=== PATIENT | male | born 1940 | race Caucasian/White ===

== ENCOUNTER 2019-02-21 07:25 | Emergency (ER) | payer MEDICARE ==
[~2019-02-21] VITALS: Ht 182.9 cm; Wt 133.9 kg
--- NOTE | 2019-02-21 08:14 | NUR ---
PT AMBULATORY TO BATHROOM UNASSISTED WITH STEADY GAIT, PT PRODUCED APPROX 150 ML GREEN SOFT STOOL, SAMPLE COLLECTED FOR PROVIDER TO PERFORM HEMOCULT AND WILL SEND SAMPLE TO LAB, PT UNABLE TO PROVIDE URINE SAMPLE AT THIS TIME AFTER ATTEMPTING TWICE.
[2019-02-21 08:18] LABS: BASOPHILS % (AUTO) 0.6 % (0-1); EOSINOPHILS # (AUTO) 0.3 X10'3 (0-0.9); EOSINOPHILS % (AUTO) 7.2 % (0-6); HEMATOCRIT 39.7 % (42.0-52.0); HEMOGLOBIN 13.5 g/dl (14.0-17.9); LYMPHOCYTES # (AUTO) 0.9 X10'3 (1.1-4.8); LYMPHOCYTES % (AUTO) 18.4 % (21-51); MEAN CORPUSCULAR HEMOGLOBIN 34.4 PG (27.0-31.0); MEAN CORPUSCULAR HGB CONC 33.9 g/dL (33.0-36.5); MEAN CORPUSCULAR VOLUME 101.3 FL (78-98); MEAN PLATELET VOLUME 7.7 FL (7.4-10.4); MONOCYTES # (AUTO) 0.5 X10'3 (0-0.9); NEUTROPHILS # (AUTO) 3.1 X10'3 (1.8-7.7); NEUTROPHILS % (AUTO) 63.8 % (42-75); PLATELET COUNT 191 X10'3 (140-440); RED BLOOD COUNT 3.92 X10'6 (4.70-6.10); RED CELL DISTRIBUTION WIDTH 13.4 % (11.5-14.5); WHITE BLOOD COUNT 4.8 X10'3 (4.5-11.0)
[2019-02-21 08:24] LABS: ALANINE AMINOTRANSFERASE 40 U/L (12-78); ALBUMIN 2.9 G/DL (3.4-5.0); ALBUMIN/GLOBULIN RATIO 0.9 (1.1-1.5); ALKALINE PHOSPHATASE 58 IU/L (46-116); ANION GAP 7 (8-16); ASPARTATE AMINO TRANSFERASE 40 U/L (10-37); BILIRUBIN,TOTAL 0.5 MG/DL (0.1-1.0); BLOOD UREA NITROGEN 13 MG/DL (7-18); BUN/CREATININE RATIO 9.8 (5.4-32.0); CALCIUM 8.8 MG/DL (8.5-10.1); CHLORIDE 107 MMOL/L (99-107); CREATININE 1.32 MG/DL (0.60-1.10); GLUCOSE 109 MG/DL (70-104); POTASSIUM 3.4 MMOL/L (3.5-5.1); SODIUM 140 MMOL/L (135-145); TOTAL CARBON DIOXIDE 25.7 MMOL/L (24-32); TOTAL PROTEIN 6.1 G/DL (6.4-8.2); eGFR 52 ML/MIN
--- NOTE | 2019-02-21 08:41 | NUR ---
DR ERIC PERFORMED RECTAL EXAM AND HEMOCULT NEGATIVE
[2019-02-21 09:05] VITALS: BP 105/67
[2019-02-21 13:19] LABS: OCCULT BLOOD STOOL NEGATIVE (Neg)
== END 2019-02-21 09:18 | disposition home or self-care (01) ==
LOC: ER 07:26
DX: K57.92 Diverticulitis of intestine, part unspecified, without perforation or abscess without bleeding (principal); Z88.8 Allergy status to other drugs, medicaments and biological substances; I95.9 Hypotension, unspecified; R10.30 Lower abdominal pain, unspecified; R11.0 Nausea; R11.10 Vomiting, unspecified; R53.1 Weakness
CPT/HCPCS: 36415; 71045; 80053; 82272; 85025; 85610; 86885; 86900; 86901; 93005; 99284

== ENCOUNTER 2019-10-03 09:57 | Emergency (ER) | payer MEDICARE ==
[~2019-10-03] VITALS: Ht 190.5 cm; Wt 102.0 kg
[2019-10-03] MEDS ORDERED: normal saline 1000ML IV soln IVB ONE (11:05)
[2019-10-03 12:11] LABS: BASOPHILS % (AUTO) 0.6 % (0-1); EOSINOPHILS # (AUTO) 0.1 X10'3 (0-0.9); EOSINOPHILS % (AUTO) 2.3 % (0-6); HEMATOCRIT 41.7 % (42.0-52.0); HEMOGLOBIN 13.9 g/dl (14.0-17.9); LYMPHOCYTES # (AUTO) 1.2 X10'3 (1.1-4.8); LYMPHOCYTES % (AUTO) 22.5 % (21-51); MEAN CORPUSCULAR HEMOGLOBIN 33.9 PG (27.0-31.0); MEAN CORPUSCULAR HGB CONC 33.5 g/dL (33.0-36.5); MEAN CORPUSCULAR VOLUME 101.2 FL (78-98); MONOCYTES # (AUTO) 0.6 X10'3 (0-0.9); MONOCYTES % (AUTO) 12.4 % (2-12); NEUTROPHILS # (AUTO) 3.2 X10'3 (1.8-7.7); NEUTROPHILS % (AUTO) 62.2 % (42-75); PLATELET COUNT 186 X10'3 (140-440); RED BLOOD COUNT 4.12 X10'6 (4.70-6.10); RED CELL DISTRIBUTION WIDTH 13.2 % (11.5-14.5); WHITE BLOOD COUNT 5.2 X10'3 (4.5-11.0)
[2019-10-03 12:26] LABS: ALANINE AMINOTRANSFERASE 31 U/L (12-78); ALBUMIN 3.4 G/DL (3.4-5.0); ALBUMIN/GLOBULIN RATIO 1.1 (1.1-1.5); ALKALINE PHOSPHATASE 77 IU/L (46-116); ANION GAP 3 (8-16); ASPARTATE AMINO TRANSFERASE 30 U/L (10-37); BILIRUBIN,TOTAL 0.6 MG/DL (0.1-1.0); BLOOD UREA NITROGEN 16 MG/DL (7-18); BUN/CREATININE RATIO 10.6 (5.4-32.0); CALCIUM 8.9 MG/DL (8.5-10.1); CHLORIDE 106 MMOL/L (99-107); CREATININE 1.51 MG/DL (0.60-1.10); GLUCOSE 93 MG/DL (70-104); LIPASE 189 U/L (73-393); SODIUM 140 MMOL/L (135-145); TOTAL CARBON DIOXIDE 30.6 MMOL/L (24-32); TOTAL PROTEIN 6.6 G/DL (6.4-8.2); eGFR 45 ML/MIN
[2019-10-03] MEDS ORDERED: LACT1CAP65 PO (13:54)
[2019-10-03] MEDS ORDERED: AMOX-422 PO (13:54)
[2019-10-03 14:59] VITALS: BP 91/56
[2019-10-03 15:01] LABS: CLARITY,URINE CLEAR (Clear); COLOR,URINE YELLOW (Yellow); GLUCOSE, URINE NEGATIVE (Neg); KETONES,URINE NEGATIVE (Neg); LEUKOCYTE ESTERASE ,URINE TRACE (Neg); NITRITES, URINE NEGATIVE (Neg); OCCULT BLOOD,URINE SMALL (Neg); PROTEIN,URINE NEGATIVE (Neg); UA COLLECTION TYPE CLN CATCH MIDSTREAM; UROBILINOGEN,URINE 0.2 E.U/dL (0.2-1.0)
[2019-10-03 15:22] LABS: BACTERIA,URINE FEW /HPF (Neg); SQUAMOUS EPITHELIAL CELL,UR FEW /LPF (FEW); WBC,URINE 0-4 /HPF (0-4)
== END 2019-10-03 15:35 | disposition home or self-care (01) ==
LOC: ER 09:58
DX: K57.92 Diverticulitis of intestine, part unspecified, without perforation or abscess without bleeding (principal); K59.00 Constipation, unspecified; K62.89 Other specified diseases of anus and rectum; N39.0 Urinary tract infection, site not specified; I48.91 Unspecified atrial fibrillation; E11.9 Type 2 diabetes mellitus without complications; Z90.49 Acquired absence of other specified parts of digestive tract; Z88.8 Allergy status to other drugs, medicaments and biological substances; Z79.2 Long term (current) use of antibiotics; Z79.899 Other long term (current) drug therapy
CPT/HCPCS: 36415; 74176; 80053; 81001; 83690; 85025; 87088; 99285; J7030

== ENCOUNTER 2019-10-10 13:39 | Emergency (ER) | payer MEDICARE ==
[~2019-10-10] VITALS: Ht 190.5 cm; Wt 132.2 kg
[~2019-10-10 13:39] MED LIST: AMOX-422 PO; LACT1CAP65 PO
[2019-10-10 13:41] VITALS: BP 119/78
[2019-10-10 14:17] LABS: CLARITY,URINE CLEAR (Clear); COLOR,URINE STRAW (Yellow); GLUCOSE, URINE NEGATIVE (Neg); KETONES,URINE NEGATIVE (Neg); NITRITES, URINE NEGATIVE (Neg); OCCULT BLOOD,URINE NEGATIVE (Neg); PROTEIN,URINE NEGATIVE (Neg); UROBILINOGEN,URINE 0.2 E.U/dL (0.2-1.0)
[2019-10-10 14:25] LABS: BASOPHILS % (AUTO) 0.6 % (0-1); EOSINOPHILS # (AUTO) 0.1 X10'3 (0-0.9); EOSINOPHILS % (AUTO) 1.6 % (0-6); HEMATOCRIT 38.7 % (42.0-52.0); HEMOGLOBIN 13.1 g/dl (14.0-17.9); LYMPHOCYTES % (AUTO) 20.2 % (21-51); MEAN CORPUSCULAR HEMOGLOBIN 34.3 PG (27.0-31.0); MEAN CORPUSCULAR HGB CONC 33.9 g/dL (33.0-36.5); MEAN CORPUSCULAR VOLUME 101.2 FL (78-98); MONOCYTES # (AUTO) 0.5 X10'3 (0-0.9); MONOCYTES % (AUTO) 10.6 % (2-12); NEUTROPHILS # (AUTO) 3.4 X10'3 (1.8-7.7); PLATELET COUNT 175 X10'3 (140-440); RED BLOOD COUNT 3.82 X10'6 (4.70-6.10); RED CELL DISTRIBUTION WIDTH 13.2 % (11.5-14.5); WHITE BLOOD COUNT 5.1 X10'3 (4.5-11.0)
[2019-10-10 14:36] LABS: ALANINE AMINOTRANSFERASE 33 U/L (12-78); ALBUMIN 3.1 G/DL (3.4-5.0); ALKALINE PHOSPHATASE 71 IU/L (46-116); ANION GAP 9 (8-16); ASPARTATE AMINO TRANSFERASE 26 U/L (10-37); BILIRUBIN,TOTAL 0.6 MG/DL (0.1-1.0); BLOOD UREA NITROGEN 9 MG/DL (7-18); BUN/CREATININE RATIO 6.9 (5.4-32.0); CALCIUM 8.2 MG/DL (8.5-10.1); CHLORIDE 101 MMOL/L (99-107); CREATININE 1.31 MG/DL (0.60-1.10); GLUCOSE 103 MG/DL (70-104); LIPASE 182 U/L (73-393); POTASSIUM 3.8 MMOL/L (3.5-5.1); SODIUM 135 MMOL/L (135-145); TOTAL CARBON DIOXIDE 25.4 MMOL/L (24-32); TOTAL PROTEIN 6.2 G/DL (6.4-8.2); eGFR 53 ML/MIN
[2019-10-10 14:41] LABS: LEUKOCYTE ESTERASE ,URINE Negative (Neg); UA COLLECTION TYPE CLN CATCH MIDSTREAM
== END 2019-10-10 15:52 | disposition home or self-care (01) ==
LOC: ER 13:40
DX: R10.84 Generalized abdominal pain (principal); K59.00 Constipation, unspecified; I48.91 Unspecified atrial fibrillation; E11.9 Type 2 diabetes mellitus without complications; Z90.49 Acquired absence of other specified parts of digestive tract; Z88.2 Allergy status to sulfonamides; Z79.2 Long term (current) use of antibiotics; Z79.899 Other long term (current) drug therapy
CPT/HCPCS: 36415; 80053; 81003; 83690; 85025; 99283

== ENCOUNTER 2020-12-23 13:51 | Emergency (ER) | payer MEDICARE ==
[~2020-12-23] VITALS: Ht 188 cm; Wt 123.0 kg
[~2020-12-23 13:51] MED LIST changes: -AMOX-422 PO
[2020-12-23] MEDS ORDERED: diltiazem 5mg/ml 5ml inj. IV ONE (14:40)
[2020-12-23] MEDS ORDERED: nitroGLYCERIN 0.4mg SUBLingual tab SL PRN (14:40)
[2020-12-23 15:06] LABS: BASOPHILS % (AUTO) 0.5 % (0-1); EOSINOPHILS # (AUTO) 0.1 X10'3 (0-0.9); HEMATOCRIT 40.7 % (42.0-52.0); LYMPHOCYTES # (AUTO) 2.1 X10'3 (1.1-4.8); LYMPHOCYTES % (AUTO) 28.7 % (21-51); MEAN CORPUSCULAR HEMOGLOBIN 34.8 PG (27.0-31.0); MEAN CORPUSCULAR HGB CONC 34.3 g/dL (33.0-36.5); MEAN CORPUSCULAR VOLUME 101.3 FL (78-98); MEAN PLATELET VOLUME 7.9 FL (7.4-10.4); MONOCYTES % (AUTO) 13.3 % (2-12); NEUTROPHILS % (AUTO) 55.5 % (42-75); PLATELET COUNT 204 X10'3 (140-440); RED BLOOD COUNT 4.02 X10'6 (4.70-6.10); RED CELL DISTRIBUTION WIDTH 13.1 % (11.5-14.5); WHITE BLOOD COUNT 7.3 X10'3 (4.5-11.0)
[2020-12-23 15:14] LABS: ALANINE AMINOTRANSFERASE 27 U/L (12-78); ALBUMIN 3.4 G/DL (3.4-5.0); ALBUMIN/GLOBULIN RATIO 1.1 (1.1-1.5); ALKALINE PHOSPHATASE 87 IU/L (46-116); ANION GAP 12 (8-16); ASPARTATE AMINO TRANSFERASE 25 U/L (10-37); BILIRUBIN,TOTAL 0.8 MG/DL (0.1-1.0); BLOOD UREA NITROGEN 14 MG/DL (7-18); BUN/CREATININE RATIO 11.2 (5.4-32.0); CALCIUM 8.4 MG/DL (8.5-10.1); CHLORIDE 101 MMOL/L (99-107); CREATININE 1.25 MG/DL (0.60-1.10); GLUCOSE 93 MG/DL (70-104); POTASSIUM 4.2 MMOL/L (3.5-5.1); SODIUM 136 MMOL/L (135-145); TOTAL CARBON DIOXIDE 23.4 MMOL/L (24-32); TOTAL PROTEIN 6.6 G/DL (6.4-8.2); eGFR 55 ML/MIN
--- NOTE | 2020-12-23 15:23 | NUR ---
Given one tablet of NTG. Pt b/p dropped to 94/60. Provider stated to hold the carizem.
--- NOTE | 2020-12-23 15:48 | NUR ---
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
--- NOTE | 2020-12-23 16:10 | NUR ---
Correction, interogating pacer with [employer].
[2020-12-23 17:33] VITALS: BP 121/78
== END 2020-12-24 07:29 | disposition home or self-care (01) ==
LOC: ER 13:51
DX: R07.89 Other chest pain (principal); I48.0 Paroxysmal atrial fibrillation; Z88.2 Allergy status to sulfonamides; Z79.899 Other long term (current) drug therapy
CPT/HCPCS: 36415; 71045; 80053; 83880; 84484; 85025; 93005; 99285

== ENCOUNTER 2024-02-26 10:19 | Emergency (ER) | payer MEDICARE, MEDICAID ==
[~2024-02-26] VITALS: Ht 188 cm; Wt 113.6 kg
[2024-02-26] MEDS: CefTRIAXone 1000mg IM Kit (w/lidocaine diluent) IM ONE (11:16)
[2024-02-26] MEDS ORDERED: CEPH-585 PO (11:25)
[2024-02-26] MEDS ORDERED: DOXY-1 PO (11:25)
[2024-02-26 11:28] VITALS: BP 127/77; PULSE 70; RESP 16; TEMP 97.9; O2SAT 99
== END 2024-02-26 11:30 | disposition home or self-care (01) ==
LOC: ER 10:20
DX: L03.114 Cellulitis of left upper limb (principal); I48.91 Unspecified atrial fibrillation; E11.9 Type 2 diabetes mellitus without complications; Z95.0 Presence of cardiac pacemaker; Z90.49 Acquired absence of other specified parts of digestive tract; Z88.2 Allergy status to sulfonamides; Z88.8 Allergy status to other drugs, medicaments and biological substances; Z79.899 Other long term (current) drug therapy
CPT/HCPCS: 96372; 99283; J0696

== ENCOUNTER 2024-03-02 08:42 | Emergency (ER) | payer MEDICARE, MEDICAID ==
[~2024-03-02] VITALS: Ht 190.5 cm; Wt 144.0 kg
[~2024-03-02 08:42] MED LIST changes: +CEPH-585 PO; +DOXY-1 PO
[2024-03-02 08:45] VITALS: BP 146/92; PULSE 87; RESP 16; O2SAT 98
[2024-03-02 09:23] VITALS: TEMP 97.2
== END 2024-03-02 09:24 | disposition home or self-care (01) ==
LOC: ER 08:43
DX: L02.512 Cutaneous abscess of left hand (principal); I48.91 Unspecified atrial fibrillation; E11.9 Type 2 diabetes mellitus without complications; Z90.49 Acquired absence of other specified parts of digestive tract; Z95.0 Presence of cardiac pacemaker; Z88.2 Allergy status to sulfonamides; Z88.8 Allergy status to other drugs, medicaments and biological substances; Z79.899 Other long term (current) drug therapy
CPT/HCPCS: 99281; A6258; A6266; A6402; A6449

== ENCOUNTER 2024-03-05 10:29 | Emergency (ER) | payer MEDICARE, MEDICAID ==
[~2024-03-05] VITALS: Ht 190.5 cm; Wt 145.0 kg
[2024-03-05 10:40] VITALS: BP 110/82; PULSE 88; RESP 16; TEMP 97.9; O2SAT 97
== END 2024-03-05 11:44 | disposition home or self-care (01) ==
LOC: ER 10:30
DX: Z48.01 Encounter for change or removal of surgical wound dressing (principal); I48.91 Unspecified atrial fibrillation; E11.9 Type 2 diabetes mellitus without complications; Z88.2 Allergy status to sulfonamides; Z90.49 Acquired absence of other specified parts of digestive tract; Z95.0 Presence of cardiac pacemaker; Z98.890 Other specified postprocedural states; Z88.8 Allergy status to other drugs, medicaments and biological substances
CPT/HCPCS: 99281